=== PATIENT | male | born 1960 | race Caucasian/White ===

== ENCOUNTER → 2017-07-21 | Outpatient (CLI) | payer OTHER ==
--- NOTE | 2017-07-21 16:56 | MR ---
EXAMINATION TYPE: MR hip RT wo con DATE OF EXAM: 07/21/2017 3:43 PM COMPARISON: NONE HISTORY: Right hip pain with limited ROM TECHNIQUE: Multiplanar, multiecho imaging of the right is performed without IV contrast. FINDINGS: There has been a right hip arthroplasty. 2 metastatic distortion through the region of the right hip makes this examination nondiagnostic for the right hip. There is mild joint space loss involving the left hip. There is mild hypertrophic change within the sigmoid region. There is no evidence of diverticulitis. IMPRESSION: 1. THE STUDY IS NONDIAGNOSTIC FOR RIGHT HIP. 2. MILD DEGENERATIVE CHANGES IN THE LEFT HIP. 3. UNCOMPLICATED DIVERTICULOSIS OF THE SIGMOID COLON.
--- NOTE | 2017-07-21 17:03 | MR ---
MR lumbar spine wo con Low back pain Multiplanar, multiecho imaging of the lumbar spine was obtained without contrast on a 3 Radha magnet. REFERENCE: Previous study dated 08/27/2014. FINDINGS: Prevertebral soft tissues are normal. Vertebral body height and alignment are maintained. Cord signal is maintained. The conus ends normally at the level of the mid body of L1. At T12-L1, no definite abnormality is seen. At L1-2, there are mild hypertrophic changes within the facets. At L2-3, there is mild hypertrophic change and capsulitis within the facets. At L3-4, there is mild hypertrophic change within the facets. At L4-5, there is disc space loss and disc desiccation. There is a diffuse disc displacement extendin g into both intervertebral foramina causing mild, bilateral intervertebral foramina stenosis. There i s hypertrophic change and capsulitis within the facets. At L5-S1, there is disc space loss and disc desiccation. There is fatty endplate change. The interver tebral foramina are reasonably well-maintained. There is mild hypertrophic change in the facets. Incidental note is made of a Tarlov cyst on the left at the level of S3. IMPRESSION: 1. DIFFUSE FACET ARTHROPATHY. 2. DEGENERATIVE DISC DISEASE MOST MARKED AT L4-5 AND L5-S1. 3. BILATERAL INTERVERTEBRAL FORAMINAL NARROWING, L4 5. 4. 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
== END ==
LOC: RADMRIMAIN 14:45
PROVIDERS: ATTEND Family Medicine
DX: M99.73 Connective tissue and disc stenosis of intervertebral foramina of lumbar region (principal); M51.37 Other intervertebral disc degeneration, lumbosacral region; M46.86 Other specified inflammatory spondylopathies, lumbar region; M16.12 Unilateral primary osteoarthritis, left hip
CPT/HCPCS: 72148

== ENCOUNTER → 2018-09-16 | Outpatient (CLI) | payer OTHER ==
--- NOTE | 2018-09-18 09:53 | MR ---
EXAMINATION TYPE: MR lumbar spine wo con DATE OF EXAM: 09/16/2018 COMPARISON: MRI lumbar spine July 21, 2017 HISTORY: Lumbar ago per order. Bad back pain into both thighs per patient for one year. TECHNIQUE: Multiplanar, multisequence imaging of the lumbar spine is performed without IV contrast. FINDINGS: Sagittal images of the lumbar spine show vertebral body heights and alignment to remain sat isfactory. There is redemonstration of disc desiccation L4-L5 level with mild disc space narrowing. T here is redemonstration of disc desiccation with moderate to severe disc space narrowing and heteroge neous Modic type II endplate changes L5-S1 level. No new or large posterior disc herniations are seen on sagittal images. The conus medullaris remains normal in position and signal ending at L1 level. P reviously visualized Tarlov cyst is outside [id number] on current study. No significant spurring i s seen. Axial images show the T12-L1 and L1-L2 levels to remain within normal limits. Axial images at L2-L3 and the L3-L4 levels redemonstrate mild facet degenerative changes bilaterally. Spinal canal is preserved. Bilateral neural foramina are patent. No significant change from prior. Axial images at the L4-L5 level redemonstrate mild to moderate facet degenerative changes bilaterally . There is mild broad disc bulge seen. Bilateral neural foramina are minimally narrowed. Spinal canal is preserved. No significant change from prior. Axial images at L5-S1 level redemonstrate mild to moderate facet degenerative changes bilaterally. Th ere is central disc protrusion. Spinal canal is preserved. Bilateral neural foramina are patent. No suspicious incidental retroperitoneal findings are seen. IMPRESSION: Some multilevel degenerative changes in the lumbar spine most prominent in lower lumbar l evels as detailed above. No significant progression from prior MRI.
== END ==
LOC: RADMRIMAIN 20:15
PROVIDERS: ATTEND Psychiatry & Neurology Neurology
DX: M99.73 Connective tissue and disc stenosis of intervertebral foramina of lumbar region (principal); M51.27 Other intervertebral disc displacement, lumbosacral region; M47.817 Spondylosis without myelopathy or radiculopathy, lumbosacral region
CPT/HCPCS: 72148

== ENCOUNTER → 2018-09-16 | Outpatient (CLI) | payer OTHER ==
--- NOTE | 2018-09-18 09:56 | MR ---
EXAMINATION TYPE: MR hip LT wo con DATE OF EXAM: 09/16/2018 COMPARISON: None. HISTORY: Lt hip pain/osteoarthritis per order. Standard multiplanar, multisequence MRI departmental protocol Multiplanar, multisequence images of the pelvis focusing on the left hip were acquired. FINDINGS: Bone marrow signal intensity in left hip is maintained. No suspicious edema is seen. No olivia picious serpiginous T1 signal is present to suggest avascular necrosis. There is fairly moderate left hip joint effusion with moderate axial joint space loss. Mild acetabular spurring is seen. Mild spur ring inferior head neck junction proximal femur is noted. There is no suspicious edema at level of greater or lesser trochanters in the left hip. No suspicious groin adenopathy is seen. No concerning groin hernia is noted. Subchondral cystic change in the anterior superior acetabulum is identified. Some degenerative frayin g of the adjacent labrum is present. Muscle bulk left thigh is felt within normal limits. Visualized portion of prostate shows diffuse areas of T2 hypointense signal in the peripheral zone. N o suspicious bowel dilatation is seen. Bladder is felt within normal limits. Artifact from right hip prosthesis is noted. IMPRESSION: Moderate degenerative changes left hip as detailed above.
== END | disposition home or self-care (01) ==
LOC: RADMRIMAIN 20:21
PROVIDERS: ATTEND Internal Medicine
DX: M16.12 Unilateral primary osteoarthritis, left hip (principal)

== ENCOUNTER 2019-05-24 06:55 | Inpatient (IN) | payer OTHER ==
[2019-05-24] MEDS ORDERED: ONDANSETRON 4 MG/2 ML VIAL IVP STA (07:18)
[2019-05-24] MEDS ORDERED: SODIUM CHLORIDE 0.9% 1,000 ML IV STA ×2 (07:18)
[2019-05-24] MEDS ORDERED: HYDROmorphone 1 MG/ML 1 ML SYRINGE IVP STA ×3 (07:18→08:13)
[2019-05-24] MEDS ORDERED: PANTOPRAZOLE 40 MG/10 ML VIAL IVP STA (07:18)
--- NOTE | 2019-05-24 07:26 | ED ---
Abdominal Pain HPI - General Chief Complaint: Abdominal Pain Stated Complaint: abd pain Time Seen by Provider: 05/24/19 07:06 Source: patient, EMS, RN notes reviewed, old records reviewed Mode of arrival: EMS Limitations: no limitations - History of Present Illness Initial Comments: Patient is a 39-year-old male with history of GERD, hyperlipidemia and hypertension also arthritis. He presents restaurant today with nausea, vomiting episodes, severe cramping abdominal pain onset 8 hours ago. He denies any diarrhea. Last bowel movement was yesterday. Patient denies any surgical abdominal history. He did have a recent left hip replacement, is currently on pain medication. Patient states that he has not had any of his pain medications because he is vomiting them up. Patient reports that he hasn't had a colonoscopy. Patient denies any back pain. She reports she is an occasional drinker. Denies any recent alcohol use in the past 24-48 hours. Patient denies any recent fever, chills, shortness of breath, chest pain, back pain, numbness or tingling, dysuria or hematuria, constipation or diarrhea, headaches or visual changes, or any other current symptoms. - Related Data Home Medications Medication Instructions Recorded Confirmed Hydrocodone/Acetaminophen 1 tab PO TID PRN 09/24/14 10/01/14 [Hydrocodon-Acetaminophen 5-325] Naproxen 500 mg PO DAILY 09/24/14 10/01/14 Omeprazole [PriLOSEC] 20 mg PO Q2D PRN 09/24/14 10/01/14 Atorvastatin [Lipitor] 40 mg PO HS 09/28/14 10/01/14 Warfarin [Coumadin] 7.5 mg PO ONCE 09/28/14 10/01/14 amLODIPine [Norvasc] 5 mg PO QAM 09/28/14 10/01/14 Previous Rx's Medication Instructions Recorded HYDROcodone/APAP 7.5-325MG [[place] 1 - 2 each PO Q6H PRN #90 tab 10/02/14 7.5-325] Warfarin [Coumadin] 2.5 mg PO DAILY #1 tab 10/02/14 Allergies Allergy/AdvReac Type Severity Reaction Status Date / Time No Known Allergies Allergy Verified 05/24/19 07:48 Review of Systems ROS Statement: Those systems with pertinent positive or pertinent negative responses have been documented in the HPI. ROS Other: All systems not noted in ROS Statement are negative. Past Medical History Past Medical History: GERD/Reflux, Hyperlipidemia, Hypertension, Osteoarthritis (OA) History of Any Multi-Drug Resistant Organisms: None Reported Additional Past Surgical History / Comment(s): REPAIR TORN MENICUS RT KNEE, HERNIA REPAIR LT GROIN Past Anesthesia/Blood Transfusion Reactions: No Reported Reaction Past Psychological History: No Psychological Hx Reported Smoking Status: Current every day smoker Past Alcohol Use History: Daily Past Drug Use History: None Reported - Past Family History Father Family Medical History: Cancer, Hypertension Mother Family Medical History: Hypertension, Osteoarthritis (OA) General Exam - General Exam Comments Initial Comments: 59-year-old male. Alert and oriented. Severe distress. Limitations: no limitations General appearance: alert, in no apparent distress Head exam: Present: atraumatic Eye exam: Present: normal appearance, PERRL, EOMI. Absent: scleral icterus, conjunctival injection, periorbital swelling ENT exam: Present: normal exam, mucous membranes moist Neck exam: Present: normal inspection. Absent: tenderness, meningismus, lymphadenopathy Respiratory exam: Present: normal lung sounds bilaterally. Absent: respiratory distress, wheezes, rales, rhonchi, stridor Cardiovascular Exam: Present: regular rate, normal rhythm, normal heart sounds. Absent: systolic murmur, diastolic murmur, rubs, gallop, clicks GI/Abdominal exam: Present: soft, tenderness (Guarding.), guarding, normal bowel sounds. Absent: distended, rebound, rigid Extremities exam: Present: normal inspection, full ROM, normal capillary refill. Absent: tenderness, pedal edema, joint swelling, calf tenderness Back exam: Present: normal inspection Neurological exam: Present: alert, oriented X3, CN II-XII intact Psychiatric exam: Present: normal affect, normal mood Skin exam: Present: warm, dry, intact, normal color. Absent: rash Course Vital Signs 05/24/19 07:02 Temperature 97.5 F L Pulse Rate 97 Respiratory 18 Rate Blood Pressure 147/94 O2 Sat by Pulse 99 Oximetry Medical Decision Making - Medical Decision Making 59-year-old male presents emergency department today riding abdominal pain. He reports symptoms started the past 8 hours, multiple episodes of vomiting. He had a bowel movement yesterday. Patient was started on IV fluids labwork obtained. Lab work shows evidence of acute pancreatitis, amylase 470 and lipase of 3721. Patient is dehydrated, lactic acid of 3.4. Leukocytosis was also noted with a white blood cell count of 17,000, neutrophils 15.3. CT abdomen and pelvis was completed and shows evidence of acute pancreatitis as well as gastritis and ileus. Patient's was given 2 L bolus, multiple rounds of pain medication. Asians case discussed with Dr. Zaldivar. She'll be admitted at this time for acute pancreatitis, ileus. On further questioning Patient states he does occasionally drink alcohol is likely related to his pancreatitis, denies any heavy use of alcohol this time. - Lab Data Result diagrams: 05/24/19 07:20 05/24/19 07:20 Lab Results 05/24/19 05/24/19 05/24/19 Range/Units 07:20 07:20 07:20 WBC 17.1 H (3.8-10.6) k/uL RBC 5.51 (4.30-5.90) m/uL Hgb 15.6 (13.0-17.5) gm/dL Hct 48.1 (39.0-53.0) % MCV 87.1 (80.0-100.0) fL MCH 28.2 (25.0-35.0) pg MCHC 32.4 (31.0-37.0) g/dL RDW 15.6 H (11.5-15.5) % Plt Count 350 (150-450) k/uL Neutrophils % 89 % Lymphocytes % 5 % Monocytes % 3 % Eosinophils % 1 % Basophils % 0 % Neutrophils # 15.3 H (1.3-7.7) k/uL Lymphocytes # 0.9 L (1.0-4.8) k/uL Monocytes # 0.6 (0-1.0) k/uL Eosinophils # 0.1 (0-0.7) k/uL Basophils # 0.0 (0-0.2) k/uL PT (9.0-12.0) sec INR (<1.2) APTT (22.0-30.0) sec Sodium 143 (137-145) mmol/L Potassium 4.4 (3.5-5.1) mmol/L Chloride 104 (98-107) mmol/L Carbon Dioxide 24 (22-30) mmol/L Anion Gap 15 mmol/L BUN 20 (9-20) mg/dL Creatinine 0.67 (0.66-1.25) mg/dL Est GFR (CKD-EPI)AfAm >90 (>60 ml/min/1.73 sqM) Est GFR (CKD-EPI)NonAf >90 (>60 ml/min/1.73 sqM) Glucose 157 H (74-99) mg/dL Plasma Lactic Acid Sridhar 3.4 H* (0.7-2.0) mmol/L Calcium 10.2 (8.4-10.2) mg/dL Total Bilirubin 0.9 (0.2-1.3) mg/dL AST 29 (17-59) U/L ALT 34 (21-72) U/L Alkaline Phosphatase 173 H (38-126) U/L Total Protein 8.3 H (6.3-8.2) g/dL Albumin 5.1 H (3.5-5.0) g/dL Amylase 471 H* (30-110) U/L Lipase 3721 H (23-300) U/L 05/24/19 Range/Units 07:20 WBC (3.8-10.6) k/uL RBC (4.30-5.90) m/uL Hgb (13.0-17.5) gm/dL Hct (39.0-53.0) % MCV (80.0-100.0) fL MCH (25.0-35.0) pg MCHC (31.0-37.0) g/dL RDW (11.5-15.5) % Plt Count (150-450) k/uL Neutrophils % % Lymphocytes % % Monocytes % % Eosinophils % % Basophils % % Neutrophils # (1.3-7.7) k/uL Lymphocytes # (1.0-4.8) k/uL Monocytes # (0-1.0) k/uL Eosinophils # (0-0.7) k/uL Basophils # (0-0.2) k/uL PT 9.7 (9.0-12.0) sec INR 0.9 (<1.2) APTT 24.5 (22.0-30.0) sec Sodium (137-145) mmol/L Potassium (3.5-5.1) mmol/L Chloride (98-107) mmol/L Carbon Dioxide (22-30) mmol/L Anion Gap mmol/L BUN (9-20) mg/dL Creatinine (0.66-1.25) mg/dL Est GFR (CKD-EPI)AfAm (>60 ml/min/1.73 sqM) Est GFR (CKD-EPI)NonAf (>60 ml/min/1.73 sqM) Glucose (74-99) mg/dL Plasma Lactic Acid Sridhar (0.7-2.0) mmol/L Calcium (8.4-10.2) mg/dL Total Bilirubin (0.2-1.3) mg/dL AST (17-59) U/L ALT (21-72) U/L Alkaline Phosphatase (38-126) U/L Total Protein (6.3-8.2) g/dL Albumin (3.5-5.0) g/dL Amylase (30-110) U/L Lipase (23-300) U/L - Radiology Data Radiology results: report reviewed EKG performed at 8:00 shows normal sinus rhythm with possible left atrial enlargement prolonged QT. Ventricular rate of 89 bpm. Verbal 164 ms. QRS ration 86 most seconds. QT QTC 396/[address] abdomen and pelvis shows findings to reflect acute pancreatitis. Correlate clinically with a moistened lipase. No evidence for pseudocyst or abscess. Gastrointestinal ileus is noted. Hepatomegaly. Disposition Clinical Impression: Acute pancreatitis, Ileus, Leukocytosis, Dehydration, Lactic acidosis Disposition: ADMITTED IP TO THIS HOSP Condition: Stable Is patient prescribed a controlled substance at d/c from ED?: No Referrals: Preston Self MD [Primary Care Provider] - 1-2 days Time of Disposition: 08:19
[2019-05-24 07:35] LABS: Basophils % (A) 0 %; Eosinophils # (A) 0.1 k/uL (0-0.7); Eosinophils % (A) 1 %; HCT 48.1 % (39.0-53.0); HGB 15.6 gm/dL (13.0-17.5); Lymphocytes # (A) 0.9 k/uL (1.0-4.8); Lymphocytes % (A) 5 %; MCH 28.2 pg (25.0-35.0); MCHC 32.4 g/dL (31.0-37.0); MCV 87.1 fL (80.0-100.0); Mean Platelet Volume 7.4; Monocytes # (A) 0.6 k/uL (0-1.0); Monocytes % (A) 3 %; Neutrophils # (A) 15.3 k/uL (1.3-7.7); Neutrophils % (A) 89 %; Platelet Count 350 k/uL (150-450); RBC 5.51 m/uL (4.30-5.90); RDW 15.6 % (11.5-15.5); WBC 17.1 k/uL (3.8-10.6)
[2019-05-24 07:43] LABS: INR 0.9 (<1.2); Partial Thromboplastin Time 24.5 sec (22.0-30.0); Prothrombin Time 9.7 sec (9.0-12.0)
[2019-05-24 07:44] LABS: ALT 34 U/L (21-72); AST 29 U/L (17-59); African American GFR (CKD) >90 (>60 ml/min/1.73 sqM); Albumin 5.1 g/dL (3.5-5.0); Alkaline Phosphatase 173 U/L (38-126); Anion Gap 15 mmol/L; Blood Urea Nitrogen 20 mg/dL (9-20); Calcium 10.2 mg/dL (8.4-10.2); Carbon Dioxide 24 mmol/L (22-30); Chloride 104 mmol/L (98-107); Glucose 157 mg/dL (74-99); Potassium 4.4 mmol/L (3.5-5.1); Sodium 143 mmol/L (137-145); Total Bilirubin 0.9 mg/dL (0.2-1.3); Total Protein 8.3 g/dL (6.3-8.2)
[2019-05-24 07:56] LABS: Amylase 471 U/L (30-110); Lipase 3721 U/L (23-300)
[2019-05-24] MEDS ORDERED: LORazepam 2 MG/ML INJ IV STA (08:04)
[2019-05-24] MEDS ORDERED: SODIUM CHLORIDE 0.9% 1,000 ML IV ONE (08:04)
--- NOTE | 2019-05-24 08:04 | CT ---
EXAMINATION TYPE: CT abdomen pelvis w con DATE OF EXAM: 05/24/2019 COMPARISON: None HISTORY: Abdominal pain CT DLP: 1059 mGycm CONTRAST: CT scan of the abdomen and pelvis is performed without Oral Contrast and with IV Contrast, patient in jected with 100 mL of Isovue 300. FINDINGS: LUNG BASES-: No visible nodule. No infiltrate. LIVER/GB: No calcified gallstones. No space occupying hepatic lesion. Biliary tree is of normal ca liber. There is evidence of hepatomegaly. PANCREAS: There is edema of the pancreas with peripancreatic stranding compatible with acute pancreat itis. SPLEEN: No splenic enlargement. No lesion seen. ADRENALS: No nodule. No thickening. KIDNEYS/BLADDER: No hydronephrosis. No nephrolithiasis. No distinct renal mass. Urinary bladder g rossly unremarkable. BOWEL: There is ileus noted of the adjacent stomach and small bowel. Fluid-filled contents noted of t he colon as well. Normal appendix. Normal bowel caliber. No inflammation. GENITAL ORGANS: No gross abnormality. LYMPH NODES: No greater than 1cm abdominal or pelvic lymph nodes are appreciated. AORTA: No significant abnormality. OSSEOUS STRUCTURES: Right hip prosthesis in place. Severe narrowing L5-S1. OTHER: No significant additional abnormality is seen. IMPRESSION: 1. Findings felt to reflect acute pancreatitis. Correlate clinically with amylase and lipase. No evid ence for pseudocyst or abscess. 2. Gastrointestinal ileus noted. 3. Hepatomegaly.
[2019-05-24] MEDS ORDERED: diphenhydrAMINE 50 MG/ML 1 ML VIAL IVP STA (08:13)
[2019-05-24] MEDS ORDERED: METOCLOPRAMIDE 5 MG/ML 2 ML VIAL IVP STA (08:13)
[2019-05-24] MEDS ORDERED: NALOXONE 0.4 MG/ML 1 ML VIAL IV PRN (08:21)
[2019-05-24] MEDS ORDERED: KETOROLAC 30 MG/ML 1 ML VIAL IVP PRN (08:21)
[2019-05-24] MEDS: SODIUM CHLORIDE 0.9% 1,000 ML IV SCH ×2 (09:10→17:17)
[2019-05-24] MEDS: PANTOPRAZOLE 40 MG/10 ML VIAL IV SCH (09:11)
[2019-05-24] MEDS: amLODIPine 5 MG TAB PO SCH (09:12)
[2019-05-24] MEDS: HYDROmorphone 1 MG/ML 1 ML SYRINGE IVP PRN ×2 (10:11→13:10)
[2019-05-24] MEDS: ONDANSETRON 4 MG/2 ML VIAL IVP PRN ×2 (10:11→17:17)
[2019-05-24] MEDS ORDERED: HYDROmorphone 2 MG/ML 1 ML SYRINGE IVP STA (14:03)
--- NOTE | 2019-05-24 14:10 | P.HPIM ---
History of Present Illness H&P Date: 05/24/19 Chief Complaint: Abdominal pain 59-year-old with PMH of hypertension, hyperlipidemia, severe bilateral hip osteoarthritis since the ED for abdominal pain. Patient reports waking up with the pain which started yesterday morning. Pain is periumbilical, constant, 10 out of 10 in severity. Patient describes the pain as squeezing in nature. Pain occasionally radiates to the right back. There are no alleviating or aggravating factors. Patient reports no previous episodes. Patient reports drinking a sixpack daily but denies any withdrawal symptoms. Patient reports associated nausea and vomiting with the abdominal pain. He smokes one pack of cigarettes daily since he was 17 years old. He denies any history of gallstones. Patient denies any headache, lower extremity edema, fever or chills, cough, chest pain, shortness of breath, palpitations, changes in urination or bowel habits. No changes in appetite or weight. In the ED, CBC showed a leukocytosis of 17.1. Coagulation panel was negative. CMP was negative. Lactic acid was 3.4. Amylase was 471 and lipase was 3721. CT of the abdomen and pelvis confirmed suspicions acute pancreatitis. Patient is admitted for pancreatitis, IV hydration and pain control, pending clinical improvement. Review of Systems Pertinent positives and negatives as discussed in HPI, a complete review of systems was performed and all other systems are negative. Past Medical History Past Medical History: GERD/Reflux, Hyperlipidemia, Hypertension, Osteoarthritis (OA) History of Any Multi-Drug Resistant Organisms: None Reported Past Surgical History: Orthopedic Surgery Additional Past Surgical History / Comment(s): REPAIR TORN MENICUS RT KNEE, HERNIA REPAIR LT GROIN, dec 10 rt hip re-do Past Anesthesia/Blood Transfusion Reactions: No Reported Reaction Past Psychological History: No Psychological Hx Reported Smoking Status: Current every day smoker Past Alcohol Use History: Daily Additional Past Alcohol Use History / Comment(s): STARTED SMOKING AGE 18 Past Drug Use History: None Reported - Past Family History Father Family Medical History: Cancer, Hypertension Mother Family Medical History: Hypertension, Osteoarthritis (OA) Medications and Allergies Home Medications Medication Instructions Recorded Confirmed Type Cyclobenzaprine [Flexeril] 5 mg PO TID PRN 05/24/19 05/24/19 History Gabapentin [Neurontin] 300 mg PO DAILY 05/24/19 05/24/19 History HYDROcodone/APAP 10-325MG [[place] 1 tab PO QID PRN 05/24/19 05/24/19 History 10-325] Ibuprofen [Motrin] 800 mg PO BID 05/24/19 05/24/19 History amLODIPine [Norvasc] 10 mg PO DAILY 05/24/19 05/24/19 History Allergies Allergy/AdvReac Type Severity Reaction Status Date / Time No Known Allergies Allergy Verified 05/24/19 07:48 Physical Exam Vitals: Vital Signs Temp Pulse Pulse Resp BP BP Pulse Ox 05/24/19 09:43 97.8 F 98 20 150/83 94 L 05/24/19 09:00 83 18 137/83 94 L 05/24/19 08:30 85 17 132/88 93 L 05/24/19 08:00 19 136/100 96 05/24/19 07:02 97.5 F L 97 18 147/94 99 Intake and Output 05/23/19 05/24/19 05/24/19 22:59 06:59 14:59 Intake Total 800 Balance 800 Intake: IV 800 Sodium Chloride 0.9% 1, 800 000 ml @ 100 mls/hr IV . Q10H [facility] Rx#:[id number] Other: Weight 90.718 kg General: [non toxic], [severe distress], [appears at stated age] Derm: [warm], [dry] Head: [atraumatic], [normocephalic], [symmetric] Eyes: [EOMI], [no lid lag], [anicteric sclera] Mouth: [no lip lesion], [mucus membranes moist] Cardiovascular: [S1S2 reg], [tachycardia], [positive posterior tibial pulse bilateral], Lungs: [CTA bilateral], [no rhonchi, no rales] , [no accessory muscle use] Abdominal: [soft], [tenderness to palpation of the epigastric area without rebound], [no guarding], [no appreciable organomegaly] Ext: [no gross muscle atrophy], [no edema], [no contractures] Neuro: [ CN II-XI grossly intact], [no focal neuro deficits] Psych: [Alert], [oriented], [appropriate affect] Results CBC & Chem 7: 05/24/19 07:20 05/24/19 07:20 Labs: Abnormal Lab Results - Last 24 Hours (Table) 05/24/19 05/24/19 05/24/19 Range/Units 07:20 07:20 07:20 WBC 17.1 H (3.8-10.6) k/uL RDW 15.6 H (11.5-15.5) % Neutrophils # 15.3 H (1.3-7.7) k/uL Lymphocytes # 0.9 L (1.0-4.8) k/uL Glucose 157 H (74-99) mg/dL Plasma Lactic Acid Sridhar 3.4 H* (0.7-2.0) mmol/L Alkaline Phosphatase 173 H (38-126) U/L Total Protein 8.3 H (6.3-8.2) g/dL Albumin 5.1 H (3.5-5.0) g/dL Amylase 471 H* (30-110) U/L Lipase 3721 H (23-300) U/L 05/24/19 Range/Units 11:08 WBC (3.8-10.6) k/uL RDW (11.5-15.5) % Neutrophils # (1.3-7.7) k/uL Lymphocytes # (1.0-4.8) k/uL Glucose (74-99) mg/dL Plasma Lactic Acid Sridhar 2.1 H* (0.7-2.0) mmol/L Alkaline Phosphatase (38-126) U/L Total Protein (6.3-8.2) g/dL Albumin (3.5-5.0) g/dL Amylase (30-110) U/L Lipase (23-300) U/L Thrombosis Risk Factor Assmnt - Choose All That Apply Each Factor Represents 1 point: Age 41-60 years Thrombosis Risk Factor Assessment Total Risk Factor Score: 1 Thrombosis Risk Factor Assessment Level: Low Risk Assessment and Plan Assessment: Assessment and Plan Acute pancreatitis Leukocytosis Lactic acidosis Hypertension Hyperlipidemia Unknown cause. Amylase 471, lipase 3721. Total bilirubin and LFTs within normal limits. CT abdomen and pelvis confirmed suspicion for pancreatitis. Plans: Dilaudid 2 mg IV every 3 hours as needed for severe pain. Continue IV hydration with normal saline at 100 mL per hour. Patient to be nothing by mouth pending improvement. Zofran as needed for nausea or vomiting. Continue Protonix 40 mg IV daily. Leukocytosis of 17.1 with neutrophilia, afebrile. No signs of infection. Likely reactive. Plans: Daily CBC. Follow blood cultures. Lactic acid 3.4-2.1. Likely secondary to dehydration. Plans: Continue IV hydration as above. Repeat lactic acid. BP 150/83. Plans: Continue amlodipine. Monitor vitals, adjust medications as necessary. Plans: Continue Lipitor. Patient admitted for pancreatitis, he is pending clinical improvement, likely DC in 2-3 days.
[2019-05-24] MEDS: HYDROmorphone 2 MG/ML 1 ML SYRINGE IVP PRN ×3 (17:17→22:31)
[2019-05-24 18:08] LABS: Appearance,Urine Clear (Clear); Bilirubin,Urine Negative (Negative); Blood,Urine Negative (Negative); Color,Urine Yellow; Glucose,Urine (UA) Negative (Negative); Ketones,Urine Negative (Negative); Leukocyte Esterase,Urine Negative (Negative); Mucus,Urine Occasional /hpf; Nitrite,Urine Negative (Negative); PH, Urine 6.5 (5.0-8.0); Protein,Urine 1+ (Negative); RBC,Urine <1 /hpf (0-5); Specific Gravity,Urine 1.042 (1.001-1.035); Urobilinogen,Urine <2.0 mg/dL (<2.0); WBC,Urine 1 /hpf (0-5)
[2019-05-24] MEDS: ATORVASTATIN 40 MG TAB PO SCH (19:49)
[2019-05-25] MEDS: ONDANSETRON 4 MG/2 ML VIAL IVP PRN ×2 (01:09→07:31)
[2019-05-25] MEDS: HYDROmorphone 2 MG/ML 1 ML SYRINGE IVP PRN ×8 (01:09→22:32)
[2019-05-25] MEDS ORDERED: IOPAMIDOL-300 CONTRAST 30 ML VIAL (ORAL USE) PO PRN ×2 (02:25→06:45)
[2019-05-25] MEDS: SODIUM CHLORIDE 0.9% 1,000 ML IV SCH ×3 (03:43→20:01)
[2019-05-25] MEDS: PANTOPRAZOLE 40 MG/10 ML VIAL IV SCH (07:31)
[2019-05-25 07:49] LABS: African American GFR (CKD) >90 (>60 ml/min/1.73 sqM); Albumin 3.9 g/dL (3.5-5.0); Amylase 250 U/L (30-110); Anion Gap 8 mmol/L; Blood Urea Nitrogen 20 mg/dL (9-20); Calcium 8.4 mg/dL (8.4-10.2); Carbon Dioxide 25 mmol/L (22-30); Chloride 106 mmol/L (98-107); Glucose 99 mg/dL (74-99); Lipase 599 U/L (23-300); Sodium 139 mmol/L (137-145); Total Protein 6.5 g/dL (6.3-8.2)
[2019-05-25 07:52] LABS: ALT 24 U/L (21-72); AST 28 U/L (17-59); Alkaline Phosphatase 107 U/L (38-126); Potassium 4.7 mmol/L (3.5-5.1)
[2019-05-25] MEDS: amLODIPine 5 MG TAB PO SCH (08:35)
[2019-05-25] MEDS: amLODIPine 10 MG TAB PO SCH (08:35)
[2019-05-25] MEDS: GABAPENTIN 300 MG CAP PO SCH (08:35)
--- NOTE | 2019-05-25 08:44 | CT ---
EXAMINATION TYPE: CT abdomen pelvis w con DATE OF EXAM: 05/25/2019 COMPARISON: 05/24/2019 HISTORY: Severe abdominal pain CT DLP: 1327 mGycm Automated exposure control for dose reduction was used. CONTRAST: CT scan of the abdomen pelvis is performed with IV Contrast, patient injected with 100 mL of Isovue 3 00. FINDINGS- LUNG BASES-bilateral lower lobe subsegmental infiltrate. LIVER/GB- No calcified gallstones. No space occupying hepatic lesion. Biliary tree is of normal beatriz iber. There is evidence of hepatomegaly. PANCREAS-there is extensive inflammatory change involving the peripancreatic region similar in appear ance to the prior exam. Small amount of ascites is incidentally. SPLEEN- No gross abnormality is seen. ADRENALS- No gross abnormality is seen. KIDNEYS/BLADDER- no hydronephrosis nephrolithiasis or renal mass. BOWEL-there are prominent small bowel loops in the abdomen which may be related to ileus secondary to severe inflammatory changes seen in the peripancreatic region.. Diverticulosis of the colon. LYMPH NODES- No greater than 1cm abdominal or pelvic lymph nodes areappreciated. OSSEOUS STRUCTURES-hypertrophic and degenerative changes of the vertebral column.. Right hip prosthes is in place. Arthropathy of the left hip. OTHER- aorta of normal caliber. Mild atherosclerotic changes. IMPRESSION- 1. Persistent extensive peripancreatic inflammatory changes. Correlate for pancreatitis otherwise con business analytics analyst peptic ulcer disease. Small amount of ascites. 2. Bilateral lower lobe atelectasis or infiltrate. 3. Persistent bowel dilation most likely the basis of an ileus secondary to inflammatory changes. Ent eritis not excluded. Partial obstruction not entirely excluded.
--- NOTE | 2019-05-25 08:54 | P.PN ---
Subjective Progress Note Date: 05/25/19 Principal diagnosis: pancreatitis Patient was seen and examined. No acute events overnight. Patient reports a slight improvement in his abdominal pain, but continues to complain of cramping that is 10 out of 10 in severity in between Dilaudid injections. Reports that he drinks a sixpack daily. Patient denies any chest and, shortness breath or palpitations. No nausea or vomiting. No fever or chills. States he had one episode of diarrhea without any blood in stool. Objective - Vital Signs Vital signs: Vital Signs Temp 98.6 F 05/25/19 04:58 Pulse 90 05/25/19 04:58 Resp 16 05/25/19 04:58 BP 122/66 05/25/19 04:58 Pulse Ox 95 05/25/19 05:05 Intake & Output 05/24/19 05/25/19 05/25/19 18:59 06:59 18:59 Intake Total 800 Output Total 175 Balance 800 -175 Weight 90.718 kg Intake: IV 800 Sodium Chloride 0.9% 1, 800 000 ml @ 100 mls/hr IV . Q10H [facility] Rx#:[id number] Output: Urine 175 Other: # Voids 1 - Exam General: [non toxic], [severe distress], [appears at stated age] Derm: [warm], [dry] Head: [atraumatic], [normocephalic], [symmetric] Eyes: [EOMI], [no lid lag], [anicteric sclera] Mouth: [no lip lesion], [mucus membranes moist] Cardiovascular: [S1S2 reg], [no murmurs], [positive DP pulse bilateral], Lungs: [CTA bilateral], [no rhonchi, no rales] , [no accessory muscle use] Abdominal: [soft], [tenderness to palpation of the epigastric area without rebound], [no guarding], [no appreciable organomegaly] Ext: [no gross muscle atrophy], [no edema], [no contractures] Neuro: [no focal neuro deficits] Psych: [Alert], [oriented], [appropriate affect] - Labs CBC & Chem 7: 05/24/19 07:20 05/25/19 07:16 Labs: Abnormal Lab Results - Last 24 Hours (Table) 05/24/19 05/24/19 05/25/19 Range/Units 11:08 18:00 07:16 Creatinine 0.51 L (0.66-1.25) mg/dL Plasma Lactic Acid [place] 2.1 H* (0.7-2.0) mmol/L Amylase 250 H (30-110) U/L Lipase 599 H (23-300) U/L Ur Specific [place] 1.042 H (1.001-1.035) Urine Protein 1+ H (Negative) Urine Mucus Occasional H (None) /hpf Assessment and Plan Assessment: Assessment and Plan Acute pancreatitis with ileus Leukocytosis Hypertension Hyperlipidemia Unknown cause. Amylase 471-250, lipase 3721-599. Total bilirubin and LFTs within normal limits. CT abdomen and pelvis confirmed suspicion for pancreatitis. Plans: Dilaudid 2 mg IV every 3 hours as needed for severe pain. Continue IV hydration with normal saline at 100 mL per hour. Patient to be nothing by mouth pending improvement. Zofran as needed for nausea or vomiting. Continue Protonix 40 mg IV daily. Repeat computed tomography scan ordered due to uncontrolled pain. Add Bentyl per abdominal cramping. Follow surgery consultation for ileus. Leukocytosis of 17.1 with neutrophilia, afebrile. No signs of infection. Likely reactive. Plans: Daily CBC. Follow blood cultures. BP 122/66. Plans: Continue amlodipine. Monitor vitals, adjust medications as necessary. Plans: Continue Lipitor. Resolved: Lactic acidosis. Patient admitted for pancreatitis, he is pending clinical improvement, likely DC in 2-3 days.
[2019-05-25] MEDS: DICYCLOMINE 10 MG CAP PO SCH ×3 (09:52→19:48)
--- NOTE | 2019-05-25 13:05 | P.GSCN ---
<Laura Gilliam - Last Filed: 05/25/19 12:58> History of Present Illness Consult date: 05/25/19 Reason for Consult: abdominal pain Requesting physician: Chrissie Sandra History of present illness: CHIEF COMPLAINT: abdominal pain HISTORY OF PRESENT ILLNESS: Patient admitted to the hospital secondary to abdominal pain and pancreatitis. General surgery was consulted for further evaluation. Patient examined at the bedside. Patient reports daily alcohol use with at least 6 beers. He states "Of course I drink everyday. I am retired". He reports severe abdominal pain that is crampy in nature. He reports nausea. Denies emesis. Denies diarrhea or constipation. Patient denies previous history of pancreatitis. PAST MEDICAL HISTORY: See list. PAST SURGICAL HISTORY: See list. MEDICATIONS: See list. ALLERGIES: See list. SOCIAL HISTORY: No illicit drug use. Reports daily alcohol use. REVIEW OF SYSTEMS: CONSTITUTIONAL: Denies fever or chills. HEENT: Denies blurred vision, vision changes, or eye pain. Denies hemoptysis ENDOCRINE: Denies heat or cold intolerance. CARDIOVASCULAR: Denies chest pain or pressure. RESPIRATORY: No shortness of breath. GASTROINTESTINAL: see HPI for pertinent findings NEURO: Denies history of seizures. PSYCH: No depression or suicidal ideation HEMATOLOGIC: Denies bleeding disorders. LYMPHATIC: The patient denies any lumps and bumps around the neck. GENITOURINARY: Denies any blood in urine or increased urinary frequency. MUSCULOSKELETAL: Denies myalgias. Denies joint swelling. Denies decreased range of motion beyond patients baseline. SKIN: Denies pruitis. Denies rash. PHYSICAL EXAM: VITAL SIGNS: Currently stable. GENERAL: Well-developed in no acute distress however appears uncomfortable. HEENT: No sclera icterus. Extraocular movements grossly intact. Moist buccal mucosa. Head is atraumatic, normocephalic. Hears conversational speech. No nasal drainage. NECK: Supple without lymphadenopathy. CHEST: Non-labored respirations and equal bilateral excursions. CARDIOVASCULAR: Regular rate with regular rhythm. Palpable 2+ radial pulses. ABDOMEN: Soft. Nondistended. Tenderness upon palpation. Positive bowel sounds. MUSCULOSKELETAL: No clubbing, cyanosis or edema. NEUROLOGIC: No focal or lateralizing signs. Cranial nerves II through XII grossly intact. PSYCH: Appropriate affect. Alert and oriented to person, place and time. SKIN: Well perfused. Good skin turgor. LABORATORY DATA: -Laboratory data upon admission reveals white count 17.1. Hemoglobin 15.6. Potassium 4.4. BUN 20. Creatinine 0.67. Lactic acid 3.4. bilirubin 0.9. AST 29. ALT 34. Amylase 471. Lipase 3721. -repeat lactic acid improved 1.4 with IV hydration -repeat lab work this morning reveals amylase 250. Lipase 599. IMAGIN. CT abdomen and pelvis: No calcified gallstones. No hepatic lesions. The biliary tree is of normal caliber. Evidence of hepatomegaly. There is inflammatory changes involving peripancreatic region. Small amount of ascites. Prominent small bowel loops in the abdomen which may be related to ileus secondary to severe inflammatory changes in the peripancreatic region. Diverticulosis of the colon. ASSESSMENT: 1. Acute pancreatitis, likely secondary to EtOH abuse 2. Abdominal pain 3. Leukocytosis 4. Alcohol abuse, patient reports drinking at least 6 beers daily 5. Dilated small bowel loops, possible ileus secondary to pancreatitis 6. Diverticulosis 7. Hepatomegaly PLAN: 1. Increase IV fluids at 125cc/hr 2. NPO except for ice chips until abdominal pain improves 3. Daily amylase and lipase 4. Recommend abstinence from alcohol 5. Conservative management of ileus. Likely will resolve with improvement of pancreatitis Nurse practitioner note has been reviewed by physician. Signing provider agrees with the documented findings, assessment, and plan of care. Past Medical History Past Medical History: GERD/Reflux, Hyperlipidemia, Hypertension, Osteoarthritis (OA) History of Any Multi-Drug Resistant Organisms: None Reported Past Surgical History: Orthopedic Surgery Additional Past Surgical History / Comment(s): REPAIR TORN MENICUS RT KNEE, HERNIA REPAIR LT GROIN, dec 10 rt hip re-do Past Anesthesia/Blood Transfusion Reactions: No Reported Reaction Past Psychological History: No Psychological Hx Reported Smoking Status: Current every day smoker Past Alcohol Use History: Daily Additional Past Alcohol Use History / Comment(s): STARTED SMOKING AGE 18 Past Drug Use History: None Reported - Past Family History Father Family Medical History: Cancer, Hypertension Mother Family Medical History: Hypertension, Osteoarthritis (OA) Medications and Allergies Home Medications Medication Instructions Recorded Confirmed Type Cyclobenzaprine [Flexeril] 5 mg PO TID PRN 05/24/19 05/24/19 History Gabapentin [Neurontin] 300 mg PO DAILY 05/24/19 05/24/19 History HYDROcodone/APAP 10-325MG [[place] 1 tab PO QID PRN 05/24/19 05/24/19 History 10-325] Ibuprofen [Motrin] 800 mg PO BID 05/24/19 05/24/19 History amLODIPine [Norvasc] 10 mg PO DAILY 05/24/19 05/24/19 History Allergies Allergy/AdvReac Type Severity Reaction Status Date / Time No Known Allergies Allergy Verified 05/24/19 07:48 Surgical - Exam Vital Signs Temp Pulse Resp BP Pulse Ox 97.5 F L 97 18 147/94 99 05/24/19 07:02 05/24/19 07:02 05/24/19 07:02 05/24/19 07:02 05/24/19 07:02 Results - Labs 05/24/19 07:20 05/25/19 07:16 Abnormal Lab Results - Last 24 Hours (Table) 05/24/19 05/25/19 Range/Units 18:00 07:16 Creatinine 0.51 L (0.66-1.25) mg/dL Amylase 250 H (30-110) U/L Lipase 599 H (23-300) U/L Ur Specific [place] 1.042 H (1.001-1.035) Urine Protein 1+ H (Negative) Urine Mucus Occasional H (None) /hpf Microbiology - Last 24 Hours (Table) 05/24/19 08:03 Blood Culture - Preliminary Blood No Growth after 24 hours Diabetes panel 05/25/19 Range/Units 07:16 Sodium 139 (137-145) mmol/L Potassium 4.7 (3.5-5.1) mmol/L Chloride 106 (98-107) mmol/L Carbon Dioxide 25 (22-30) mmol/L BUN 20 (9-20) mg/dL Creatinine 0.51 L (0.66-1.25) mg/dL Glucose 99 (74-99) mg/dL Calcium 8.4 (8.4-10.2) mg/dL AST 28 (17-59) U/L ALT 24 (21-72) U/L Alkaline Phosphatase 107 (38-126) U/L Total Protein 6.5 (6.3-8.2) g/dL Albumin 3.9 (3.5-5.0) g/dL Calcium panel 05/25/19 Range/Units 07:16 Calcium 8.4 (8.4-10.2) mg/dL Albumin 3.9 (3.5-5.0) g/dL Pituitary panel 05/25/19 Range/Units 07:16 Sodium 139 (137-145) mmol/L Potassium 4.7 (3.5-5.1) mmol/L Chloride 106 (98-107) mmol/L Carbon Dioxide 25 (22-30) mmol/L BUN 20 (9-20) mg/dL Creatinine 0.51 L (0.66-1.25) mg/dL Glucose 99 (74-99) mg/dL Calcium 8.4 (8.4-10.2) mg/dL Adrenal panel 05/25/19 Range/Units 07:16 Sodium 139 (137-145) mmol/L Potassium 4.7 (3.5-5.1) mmol/L Chloride 106 (98-107) mmol/L Carbon Dioxide 25 (22-30) mmol/L BUN 20 (9-20) mg/dL Creatinine 0.51 L (0.66-1.25) mg/dL Glucose 99 (74-99) mg/dL Calcium 8.4 (8.4-10.2) mg/dL Total Bilirubin 1.0 (0.2-1.3) mg/dL AST 28 (17-59) U/L ALT 24 (21-72) U/L Alkaline Phosphatase 107 (38-126) U/L Total Protein 6.5 (6.3-8.2) g/dL Albumin 3.9 (3.5-5.0) g/dL Assessment and Plan (1) ETOH abuse Current Visit: Yes Status: Acute Code(s): F10.10 - ALCOHOL ABUSE, UNCOMP LICATED SNOMED Code(s): 92301560 (2) Diverticulosis Current Visit: Yes Status: Acute Code(s): K57.90 - DVRTCLOS OF INTEST, PART UNSP, W/O PERF OR ABSCESS W/O BLEED SNOMED Code(s): 683222050 (3) Hepatomegaly Current Visit: Yes Status: Acute Code(s): R16.0 - HEPATOMEGALY, NOT ELSEWHERE CLASSIFIED SNOMED Code(s): 74209179 (4) Acute pancreatitis Current Visit: Yes Status: Acute Code(s): K85.90 - ACUTE PANCREATITIS WITHOUT NECROSIS OR INFECTION, UNSP SNOMED Code(s): 200392173 (5) Ileus Current Visit: Yes Status: Acute Code(s): K56.7 - ILEUS, UNSPECIFIED SNOMED Code(s): 090559256 (6) Lactic acidosis Current Visit: Yes Status: Acute Code(s): E87.2 - ACIDOSIS SNOMED Code(s): 33681553 (7) Leukocytosis Current Visit: Yes Status: Acute Code(s): D72.829 - ELEVATED WHITE BLOOD CELL COUNT, UNSPECIFIED SNOMED Code(s): 852326709 <Lizzy Silverio N - Last Filed: 05/25/19 18:49> History of Present Illness History of present illness: As above. He has moderate pancreatitis with chronic pain. Recommend toradol for pain control as narcotics adds increased risk for ileus. Ice chips agreeable. Surgical - Exam Vital Signs Temp Pulse Resp BP Pulse Ox 97.5 F L 97 18 147/94 99 05/24/19 07:02 05/24/19 07:02 05/24/19 07:02 05/24/19 07:02 05/24/19 07:02 Results - Labs 05/24/19 07:20 05/25/19 07:16 Abnormal Lab Results - Last 24 Hours (Table) 05/25/19 Range/Units 07:16 Creatinine 0.51 L (0.66-1.25) mg/dL Amylase 250 H (30-110) U/L Lipase 599 H (23-300) U/L Microbiology - Last 24 Hours (Table) 05/24/19 08:03 Blood Culture - Preliminary Blood No Growth after 24 hours Diabetes panel 05/25/19 Range/Units 07:16 Sodium 139 (137-145) mmol/L Potassium 4.7 (3.5-5.1) mmol/L Chloride 106 (98-107) mmol/L Carbon Dioxide 25 (22-30) mmol/L BUN 20 (9-20) mg/dL Creatinine 0.51 L (0.66-1.25) mg/dL Glucose 99 (74-99) mg/dL Calcium 8.4 (8.4-10.2) mg/dL AST 28 (17-59) U/L ALT 24 (21-72) U/L Alkaline Phosphatase 107 (38-126) U/L Total Protein 6.5 (6.3-8.2) g/dL Albumin 3.9 (3.5-5.0) g/dL Calcium panel 05/25/19 Range/Units 07:16 Calcium 8.4 (8.4-10.2) mg/dL Albumin 3.9 (3.5-5.0) g/dL Pituitary panel 05/25/19 Range/Units 07:16 Sodium 139 (137-145) mmol/L Potassium 4.7 (3.5-5.1) mmol/L Chloride 106 (98-107) mmol/L Carbon Dioxide 25 (22-30) mmol/L BUN 20 (9-20) mg/dL Creatinine 0.51 L (0.66-1.25) mg/dL Glucose 99 (74-99) mg/dL Calcium 8.4 (8.4-10.2) mg/dL Adrenal panel 05/25/19 Range/Units 07:16 Sodium 139 (137-145) mmol/L Potassium 4.7 (3.5-5.1) mmol/L Chloride 106 (98-107) mmol/L Carbon Dioxide 25 (22-30) mmol/L BUN 20 (9-20) mg/dL Creatinine 0.51 L (0.66-1.25) mg/dL Glucose 99 (74-99) mg/dL Calcium 8.4 (8.4-10.2) mg/dL Total Bilirubin 1.0 (0.2-1.3) mg/dL AST 28 (17-59) U/L ALT 24 (21-72) U/L Alkaline Phosphatase 107 (38-126) U/L Total Protein 6.5 (6.3-8.2) g/dL Albumin 3.9 (3.5-5.0) g/dL
--- NOTE | 2019-05-25 14:00 | XR ---
EXAMINATION TYPE: XR chest 2V DATE OF EXAM: 05/25/2019 COMPARISON: NONE TECHNIQUE: PA and lateral views submitted. HISTORY: Shortness of breath FINDINGS: Right perihilar and bilateral lower lobe infiltrate are seen. Azygos fissure noted. No pneumothorax. Tiny bilateral effusions. Mild hyperinflation. Hypertrophic change of the spine. IMPRESSION: 1. Bilateral infiltrate and small effusion. Correlate for atelectasis or pneumonia. Mild central veno us congestion not excluded.
[2019-05-25] MEDS: ATORVASTATIN 40 MG TAB PO SCH (19:48)
[2019-05-26] MEDS: HYDROmorphone 2 MG/ML 1 ML SYRINGE IVP PRN ×7 (01:12→21:43)
[2019-05-26] MEDS: LORazepam 2 MG/ML INJ IV PRN ×4 (02:50→20:51)
[2019-05-26] MEDS: SODIUM CHLORIDE 0.9% 1,000 ML IV SCH ×3 (05:34→20:51)
[2019-05-26] MEDS: amLODIPine 10 MG TAB PO SCH (07:22)
[2019-05-26] MEDS: DICYCLOMINE 10 MG CAP PO SCH ×3 (07:22→20:51)
[2019-05-26] MEDS: GABAPENTIN 300 MG CAP PO SCH (07:22)
[2019-05-26] MEDS: PANTOPRAZOLE 40 MG/10 ML VIAL IV SCH (07:28)
[2019-05-26 09:32] LABS: Basophils % (A) 0 %; Eosinophils # (A) 0.1 k/uL (0-0.7); Eosinophils % (A) 1 %; HCT 38.4 % (39.0-53.0); HGB 12.7 gm/dL (13.0-17.5); Lymphocytes # (A) 0.8 k/uL (1.0-4.8); Lymphocytes % (A) 9 %; MCH 29.4 pg (25.0-35.0); MCHC 33.1 g/dL (31.0-37.0); MCV 88.8 fL (80.0-100.0); Mean Platelet Volume 7.9; Monocytes # (A) 0.6 k/uL (0-1.0); Monocytes % (A) 7 %; Neutrophils # (A) 6.8 k/uL (1.3-7.7); Neutrophils % (A) 79 %; Platelet Count 220 k/uL (150-450); RBC 4.33 m/uL (4.30-5.90); RDW 15.8 % (11.5-15.5); WBC 8.7 k/uL (3.8-10.6)
[2019-05-26 09:51] LABS: Amylase 46 U/L (30-110); Lipase 101 U/L (23-300)
--- NOTE | 2019-05-26 11:24 | P.PN ---
Subjective Progress Note Date: 05/26/19 Principal diagnosis: Pancreatitis Patient was seen and examined. No acute events overnight. NG tube inserted yesterday by surgery to suction. Green bile draining today. Patient continues to complain of generalized abdominal cramping, 10 out of 10 in severity. States the Dilaudid only lasts for 1 hour. He denies fever or chills. He denies chest pain, shortness of breath or palpitations. Objective - Vital Signs Vital signs: Vital Signs Temp 97.7 F 05/26/19 07:05 Pulse 87 05/26/19 07:05 Resp 15 05/26/19 07:05 BP 99/61 05/26/19 07:05 Pulse Ox 97 05/26/19 07:05 Intake & Output 05/25/19 05/26/19 05/26/19 18:59 06:59 18:59 Output Total 525 700 Balance -525 -700 Output: Gastric Drainage 700 Urine 525 Other: # Voids 2 3 - Exam General: [non toxic], [severe distress], [appears at stated age] Derm: [warm], [dry] Head: [atraumatic], [normocephalic], [NG tube inserted to low suction] Eyes: [EOMI], [no lid lag], [anicteric sclera] Mouth: [no lip lesion], [mucus membranes moist] Cardiovascular: [S1S2 reg], [no murmurs], [positive DP pulse bilateral], Lungs: [CTA bilateral], [no rhonchi, no rales] , [no accessory muscle use] Abdominal: [soft], [tenderness to palpation of the in all 4 quadrants without rebound], [no guarding], [no appreciable organomegaly] Ext: [no gross muscle atrophy], [no edema], [no contractures] Neuro: [no focal neuro deficits] Psych: [Alert], [oriented], [appropriate affect] - Labs CBC & Chem 7: 05/26/19 08:45 05/25/19 07:16 Labs: Abnormal Lab Results - Last 24 Hours (Table) 05/26/19 Range/Units 08:45 Hgb 12.7 L (13.0-17.5) gm/dL Hct 38.4 L (39.0-53.0) % RDW 15.8 H (11.5-15.5) % Lymphocytes # 0.8 L (1.0-4.8) k/uL Microbiology - Last 24 Hours (Table) 05/24/19 08:03 Blood Culture - Preliminary Blood No Growth after 24 hours Assessment and Plan Assessment: Assessment and Plan Acute pancreatitis with ileus Alcohol abuse Leukocytosis Hypertension Hyperlipidemia Unknown cause. Amylase [id number] normal limits, lipase [id number] normal limits. Total bilirubin and LFTs within normal limits. CT abdomen and pelvis confirmed suspicion for pancreatitis. Plans: Dilaudid 2 mg IV every 3 hours as needed for severe pain. Continue IV hydration with normal saline at 125 mL per hour. Patient to be nothing by mouth pending improvement. Zofran as needed for nausea or vomiting. Continue NG tube to suction as per general surgery. Continue Protonix 40 mg IV daily. Repeat computed tomography scan ordered due to uncontrolled pain, confirms pancreatitis with possible ileus. Add Bentyl per abdominal cramping. Follow surgery consultation for ileus. States he drinks a pint of vodka and 6 pack of beer daily. Plans: Ativan 1 mg every 4 hours as needed for agitation. CIWA protocol. Leukocytosis of 17.1 with neutrophilia, afebrile, now within normal limits. No signs of infection. Blood culture negative at 24 hours. Likely reactive. Plans: Daily CBC. Follow blood cultures. BP 99/61. Plans: Continue amlodipine. Monitor vitals, adjust medications as necessary. Plans: Continue Lipitor. Resolved: Lactic acidosis. Patient admitted for pancreatitis, he is pending clinical improvement, likely DC in 2-3 days.
[2019-05-26] MEDS: KETOROLAC 30 MG/ML 1 ML VIAL IVP SCH ×3 (11:39→23:57)
--- NOTE | 2019-05-26 12:48 | P.PN ---
<Laura Gilliam Garima - Last Filed: 05/26/19 12:39> Subjective Progress Note Date: 05/26/19 CHIEF COMPLAINT: abdominal pain HISTORY OF PRESENT ILLNESS: Patient examined at the bedside with Dr. Silverio. He continues to report severe abdominal pain. Denies episodes of emesis. NG tube was ordered last night per medicine team, not surgery team. WBC 8.7. Hemoglobin 12.7. Amylase 46. Lipase 101. PHYSICAL EXAM: VITAL SIGNS: Currently stable. GENERAL: Well-developed in no acute distress however appears uncomfortable. HEENT: NG to LIS with bilous drainage. No sclera icterus. Extraocular movements grossly intact. Moist buccal mucosa. Head is atraumatic, normocephalic. Hears conversational speech. No nasal drainage. NECK: Supple without lymphadenopathy. CHEST: Non-labored respirations and equal bilateral excursions. CARDIOVASCULAR: Regular rate with regular rhythm. Palpable 2+ radial pulses. ABDOMEN: Soft. Nondistended. Tenderness upon palpation. Positive bowel sounds. MUSCULOSKELETAL: No clubbing, cyanosis or edema. NEUROLOGIC: No focal or lateralizing signs. Cranial nerves II through XII grossly intact. PSYCH: Appropriate affect. Alert and oriented to person, place and time. SKIN: Well perfused. Good skin turgor. ASSESSMENT: 1. Acute pancreatitis, likely secondary to EtOH abuse 2. Abdominal pain 3. Leukocytosis 4. Alcohol abuse, patient reports drinking at least 6 beers daily and vodka 5. Dilated small bowel loops, possible ileus secondary to pancreatitis 6. Diverticulosis 7. Hepatomegaly 8. Chronic opioid use PLAN: 1. Continue IV fluids 2. NPO until abdominal pain improves 3. Pain control. Continue dilaudid. Will add scheduled Toradol to regimen. 4. Recommend abstinence from alcohol 5. NG tube was ordered yesterday per medicine due to abdominal pain. Patient without emesis yesterday prior to inserting. Patient does not require NG tube and NG may be discontinued. Nurse practitioner note has been reviewed by physician. Signing provider agrees with the documented findings, assessment, and plan of care. Objective - Vital Signs Vital signs: Vital Signs Temp 97.7 F 05/26/19 07:05 Pulse 87 05/26/19 07:05 Resp 15 05/26/19 07:05 BP 99/61 05/26/19 07:05 Pulse Ox 97 05/26/19 07:05 Intake & Output 05/25/19 05/26/19 05/26/19 18:59 06:59 18:59 Output Total 525 700 Balance -525 -700 Output: Gastric Drainage 700 Urine 525 Other: # Voids 2 3 - Labs CBC & Chem 7: 05/26/19 08:45 05/25/19 07:16 Labs: Abnormal Lab Results - Last 24 Hours (Table) 05/26/19 Range/Units 08:45 Hgb 12.7 L (13.0-17.5) gm/dL Hct 38.4 L (39.0-53.0) % RDW 15.8 H (11.5-15.5) % Lymphocytes # 0.8 L (1.0-4.8) k/uL Microbiology - Last 24 Hours (Table) 05/24/19 08:03 Blood Culture - Preliminary Blood No Growth after 48 hours Assessment and Plan (1) ETOH abuse Current Visit: Yes Status: Acute Code(s): F10.10 - ALCOHOL ABUSE, UNCOMPLICATED SNOMED Code(s): 66819379 (2) Diverticulosis Current Visit: Yes Status: Acute Code(s): K57.90 - DVRTCLOS OF INTEST, PART UNSP, W/O PERF OR ABSCESS W/O BLEED SNOMED Code(s): 284348449 (3) Hepatomegaly Current Visit: Yes Status: Acute Code(s): R16.0 - HEPATOMEGALY, NOT ELSEWHERE CLASSIFIED SNOMED Code(s): 75824044 (4) Acute pancreatitis Current Visit: Yes Status: Acute Code(s): K85.90 - ACUTE PANCREATITIS WITHOUT NECROSIS OR INFECTION, UNSP SNOMED Code(s): 168536592 (5) Ileus Current Visit: Yes Status: Acute Code(s): K56.7 - ILEUS, UNSPECIFIED SNOMED Code(s): 919581821 (6) Lactic acidosis Current Visit: Yes Status: Acute Code(s): E87.2 - ACIDOSIS SNOMED Code(s): 75481462 (7) Leukocytosis Current Visit: Yes Status: Acute Code(s): D72.829 - ELEVATED WHITE BLOOD CELL COUNT, UNSPECIFIED SNOMED Code(s): 698434662 <Lizzy Silverio N - Last Filed: 05/26/19 16:42> Subjective At this time conservative management for moderate to severe pancreatitis. We'll follow lipase levels. We will add ketorolac for pain Objective - Vital Signs Vital signs: Vital Signs Temp 98.8 F 05/26/19 14:23 Pulse 80 05/26/19 14:23 Resp 15 05/26/19 14:23 BP 102/59 05/26/19 14:23 Pulse Ox 97 05/26/19 14:23 Intake & Output 05/25/19 05/26/19 05/26/19 18:59 06:59 18:59 Output Total 525 700 Balance -525 -700 Output: Gastric Drainage 700 Urine 525 Other: # Voids 2 3 1 - Labs CBC & Chem 7: 05/26/19 08:45 05/25/19 07:16 Labs: Abnormal Lab Results - Last 24 Hours (Table) 05/26/19 Range/Units 08:45 Hgb 12.7 L (13.0-17.5) gm/dL Hct 38.4 L (39.0-53.0) % RDW 15.8 H (11.5-15.5) % Lymphocytes # 0.8 L (1.0-4.8) k/uL Microbiology - Last 24 Hours (Table) 05/24/19 08:03 Blood Culture - Preliminary Blood No Growth after 48 hours
[2019-05-26] MEDS: ATORVASTATIN 40 MG TAB PO SCH (20:51)
[2019-05-27] MEDS: HYDROmorphone 2 MG/ML 1 ML SYRINGE IVP PRN ×2 (00:19→05:16)
[2019-05-27] MEDS: LORazepam 2 MG/ML INJ IV PRN (03:37)
[2019-05-27] MEDS: KETOROLAC 30 MG/ML 1 ML VIAL IVP SCH (06:01)
[2019-05-27] MEDS: SODIUM CHLORIDE 0.9% 1,000 ML IV SCH (06:02)
[2019-05-27 07:56] VITALS: BP 115/71; PULSE 81; RESP 17; TEMP 98.3
[2019-05-27] MEDS: amLODIPine 10 MG TAB PO SCH (08:05)
[2019-05-27] MEDS: PANTOPRAZOLE 40 MG/10 ML VIAL IV SCH (08:05)
[2019-05-27] MEDS: DICYCLOMINE 10 MG CAP PO SCH (08:05)
[2019-05-27] MEDS: GABAPENTIN 300 MG CAP PO SCH (08:05)
[2019-05-27 08:54] LABS: Amylase 49 U/L (30-110); Lipase 126 U/L (23-300)
--- NOTE | 2019-05-27 09:23 | P.DS ---
Providers Date of admission: 05/24/19 09:10 Expected date of discharge: 05/27/19 Attending physician: Braxton Harrington MD Consults: 05/25/19 08:40 Consult Physician Urgent Consulting Provider: Lizzy Silverio Consult Reason/Comments: abd pn n/v Do you want consulting provider notified?: Yes Primary care physician: [facility] Course: 59-year-old with PMH of hypertension, hyperlipidemia, severe bilateral hip osteoarthritis since the ED for abdominal pain. Patient reports waking up with the pain which started yesterday morning. Pain is periumbilical, constant, 10 out of 10 in severity. Patient describes the pain as squeezing in nature. Pain occasionally radiates to the right back. There are no alleviating or aggravating factors. Patient reports no previous e pisodes. Patient reports drinking a sixpack daily but denies any withdrawal symptoms. Patient reports associated nausea and vomiting with the abdominal pain. He smokes one pack of cigarettes daily since he was 17 years old. He denies any history of gallstones. Patient denies any headache, lower extremity edema, fever or chills, cough, chest pain, shortness of breath, palpitations, changes in urination or bowel habits. No changes in appetite or weight. In the ED, CBC showed a leukocytosis of 17.1. Coagulation panel was negative. CMP was negative. Lactic acid was 3.4. Amylase was [address] lipase was 3721. CT of the abdomen and pelvis confirmed suspicions acute pancreatitis. Patient is admitted for pancreatitis, IV hydration and pain control, pending clinical improvement. Patient was initially admitted for acute pancreatitis with ileus. Amylase was initially 471 which trended to within normal limits on discharge. Lipase was 3722 which trended to within normal limits on discharge. Total bilirubin and LFTs were within normal limits. Repeat CT abdomen and pelvis was performed for worsening abdominal pain which confirmed acute pancreatitis and ileus. Patient was given Dilaudid 2 mg IV every 3 hours as needed for severe pain. He was hydrated with normal saline and given Zofran as needed for nausea and vomiting. Gen. surgery was consulted for ileus and recommended strict nothing by mouth. NG tube was inserted which was discontinued at the time of discharge. Patient was treated with Protonix IV daily. Bentyl was added for abdominal cramping. Patient was placed on CIWA protocol and given Ativan as needed for agitation for history of alcohol consumption. Patient initially had a leukocytosis of 17.1 with neutrophilia on admission but was afebrile throughout his hospitalization. His WBC count was within normal limits on discharge. Blood cultures are negative at 48 hours. Patient was seen and examined prior to discharge. No acute events overnight. Patient reports resolution of his abdominal pain. Wanted to leave. He denies any chest pain, shortness breath or palpitations. No nausea or vomiting. No fever or chills. General: [non toxic], [no distress], [appears at stated age] Derm: [warm], [dry] Head: [atraumatic], [normocephalic] Eyes: [EOMI], [no lid lag], [anicteric sclera] Mouth: [no lip lesion], [mucus membranes moist] Cardiovascular: [S1S2 reg], [no murmurs], [positive DP pulse bilateral], Lungs: [CTA bilateral], [no rhonchi, no rales] , [no accessory muscle use] Abdominal: [soft], [nontender to palpation], [no guarding], [no appreciable organomegaly] Ext: [no gross muscle atrophy], [no edema], [no contractures] Neuro: [no focal neuro deficits] Psych: [Alert], [oriented], [appropriate affect] Assessment and Plan Acute pancreatitis with ileus Alcohol abuse Leukocytosis Hypertension Hyperlipidemia Unknown cause. Amylase [id number] normal limits, lipase [id number] normal limits. Total bilirubin and LFTs within normal limits. CT abdomen and pelvis confirmed suspicion for pancreatitis. Plans: Dilaudid 2 mg IV every 3 hours as needed for severe pain. Continue IV hydration with normal saline at 125 mL per hour. Patient to be nothing by mouth pending improvement. Zofran as needed for nausea or vomiting. NG tube discontinued. Continue Protonix 40 mg IV daily. Repeat computed tomography scan ordered due to uncontrolled pain, confirms pancreatitis with possible ileus. Add Bentyl per abdominal cramping. Follow surgery consultation for ileus. States he drinks a pint of vodka and 6 pack of beer daily. Plans: Ativan 1 mg every 4 hours as needed for agitation. [facility] protocol. Leukocytosis of 17.1 with neutrophilia, afebrile, now within normal limits. No signs of infection. Blood culture negative at 48 hours. Likely reactive. Plans: Daily CBC. Follow blood cultures. BP 115/71. Plans: Continue amlodipine. Monitor vitals, adjust medications as necessary. Plans: Continue Lipitor. Resolved: Lactic acidosis. Patient admitted for pancreatitis, much improved. Patient requesting to leave, threatening AMA. DC today. Pertinent Studies: CT abdomen and pelvis, chest x-ray Procedures: NG tube placement Patient Condition at Discharge: Stable Plan - Discharge Summary Discharge Rx Participant: No New Discharge Prescriptions: New Atorvastatin [Lipitor] 40 mg PO HS #30 tab Pantoprazole Sodium [Protonix] 40 mg PO DAILY #30 tablet. Continue amLODIPine [Norvasc] 10 mg PO DAILY HYDROcodone/APAP 10-325MG [[place] 10-325] 1 tab PO QID PRN PRN Reason: Pain Gabapentin [Neurontin] 300 mg PO DAILY Cyclobenzaprine [Flexeril] 5 mg PO TID PRN PRN Reason: Muscle Spasm Discontinued Ibuprofen [Motrin] 800 mg PO BID Discharge Medication List Cyclobenzaprine [Flexeril] 5 mg PO TID PRN 05/24/19 [History] Gabapentin [Neurontin] 300 mg PO DAILY 05/24/19 [History] HYDROcodone/APAP 10-325MG [[place] 10-325] 1 tab PO QID PRN 05/24/19 [History] amLODIPine [Norvasc] 10 mg PO DAILY 05/24/19 [History] Atorvastatin [Lipitor] 40 mg PO HS #30 tab 05/27/19 [Rx] Pantoprazole Sodium [Protonix] 40 mg PO DAILY #30 tablet. 05/27/19 [Rx] Follow up Appointment(s)/Referral(s): Preston Self MD [Primary Care Provider] - 1-2 days Petar León MD [STAFF PHYSICIAN] - 1 Week Activity/Diet/Wound Care/Special Instructions: Diet: Low fat Follow-up PCP within 1-2 days of discharge. Follow-up gastroenterology within 1 week of discharge. Please refrain from drinking alcohol. Discharge Disposition: HOME SELF-CARE
[2019-05-27 09:32] LABS: Basophils % (A) 0 %; Eosinophils # (A) 0.2 k/uL (0-0.7); Eosinophils % (A) 2 %; HCT 36.2 % (39.0-53.0); HGB 12.1 gm/dL (13.0-17.5); Lymphocytes # (A) 0.9 k/uL (1.0-4.8); Lymphocytes % (A) 11 %; MCH 29.1 pg (25.0-35.0); MCHC 33.3 g/dL (31.0-37.0); MCV 87.2 fL (80.0-100.0); Mean Platelet Volume 9.4; Monocytes # (A) 0.6 k/uL (0-1.0); Monocytes % (A) 8 %; Neutrophils # (A) 6.2 k/uL (1.3-7.7); Neutrophils % (A) 76 %; Platelet Count 230 k/uL (150-450); RBC 4.15 m/uL (4.30-5.90); RDW 15.5 % (11.5-15.5); WBC 8.1 k/uL (3.8-10.6)
== END 2019-05-27 09:37 | disposition home or self-care (01) | DRG 439 ==
LOC: EC 06:55 → 4MS4W 09:10 → 4SSUR 05-25 17:48
PROVIDERS: ADMIT Family Medicine; ATTEND Family Medicine
DX: K85.20 Alcohol induced acute pancreatitis without necrosis or infection (principal); E87.2 Acidosis; K56.7 Ileus, unspecified; R16.0 Hepatomegaly, not elsewhere classified; E78.5 Hyperlipidemia, unspecified; E86.0 Dehydration; F10.10 Alcohol abuse, uncomplicated; D72.829 Elevated white blood cell count, unspecified; F17.210 Nicotine dependence, cigarettes, uncomplicated; G89.29 Other chronic pain; I10 Essential (primary) hypertension; K21.9 Gastro-esophageal reflux disease without esophagitis; K57.90 Diverticulosis of intestine, part unspecified, without perforation or abscess without bleeding; M16.11 Unilateral primary osteoarthritis, right hip; Z79.01 Long term (current) use of anticoagulants; Z79.891 Long term (current) use of opiate analgesic; Z79.899 Other long term (current) drug therapy; Z96.642 Presence of left artificial hip joint; Z82.49 Family history of ischemic heart disease and other diseases of the circulatory system; Z80.9 Family history of malignant neoplasm, unspecified; Z82.61 Family history of arthritis
CPT/HCPCS: 36415; 71046; 74177; 80053; 81001; 82150; 83605; 83690; 85025; 85610; 85730; 87040; 93005; 96361; 96374; 96375; 96376; 99285

== ENCOUNTER → 2019-10-18 | Outpatient (CLI) | payer OTHER ==
--- NOTE | 2019-10-19 02:00 | MR ---
EXAMINATION TYPE: MR abdomen wo/w con DATE OF EXAM: 10/18/2019 COMPARISON: None HISTORY: Abdominal pain, pancreatitis CONTRAST: Standard multiplanar, multisequence MRI departmental protocol utilizing 8.5 mL intravenous Gadavist g adolinium contrast. FINDINGS: Liver shows no focal defect. Gallbladder appears normal. Spleen is intact. Stomach appears normal. Pancreatic duct appears fairly normal. I see no evidence of a pancreatic mass. I see no evidence of p ancreatic pseudocyst. The common bile duct measures 9 mm. Intrahepatic bile ducts are not dilated. Pa ncreatic duct measures 2 mm. There is no adrenal mass. Kidneys have normal size and contour. There is no hydronephrosis. There is no sign of retroperitoneal adenopathy. There is no ascites. There is no evidence of pleural effusion. There is no sign of pericardial effusion. Contrast images show no pathologic enhancement. There is n ormal contrast opacification of the portal venous system. IMPRESSION: There is mild ectasia of the common bile duct but no dilation of the intrahepatic bile ducts. This co uld relate to some gallbladder dysfunction. No evidence of cholecystitis. No sign of gallstones. No e vidence of pancreatitis. No evidence of pseudocyst.
== END | disposition home or self-care (01) ==
LOC: RADMRIMAIN 19:42
PROVIDERS: ATTEND Internal Medicine
DX: K83.8 Other specified diseases of biliary tract (principal)
CPT/HCPCS: 74183; A9585

== ENCOUNTER → 2019-10-30 | Outpatient (CLI) | payer OTHER ==
[2019-10-30 15:15] LABS: Basophils # (A) 0.1 k/uL (0-0.2); Basophils % (A) 1 %; Eosinophils # (A) 0.3 k/uL (0-0.7); Eosinophils % (A) 3 %; HCT 47.1 % (39.0-53.0); HGB 15.7 gm/dL (13.0-17.5); Lymphocytes # (A) 2.3 k/uL (1.0-4.8); Lymphocytes % (A) 24 %; MCH 29.5 pg (25.0-35.0); MCHC 33.4 g/dL (31.0-37.0); MCV 88.4 fL (80.0-100.0); Mean Platelet Volume 8.1; Monocytes # (A) 0.5 k/uL (0-1.0); Monocytes % (A) 5 %; Neutrophils # (A) 6.3 k/uL (1.3-7.7); Neutrophils % (A) 65 %; Platelet Count 322 k/uL (150-450); RBC 5.33 m/uL (4.30-5.90); RDW 13.7 % (11.5-15.5); WBC 9.6 k/uL (3.8-10.6)
[2019-10-30 19:17] LABS: African American GFR (CKD) 121.4 (60.0-200.0); Albumin 4.8 g/dL (3.80-4.90); Albumin/Globulin Ratio 2.29 (1.60-3.17); Anion Gap 4.3 mmol/L (4.00-12.00); BUN/Creat Ratio 21.43 Ratio (12.00-20.00); Calcium 9.7 mg/dL (8.7-10.3); Carbon Dioxide 25.7 mmol/L (21.6-31.8); Globulin 2.1 g/dL (1.6-3.3); Non-African American GFR(CKD) 104.8 (60.0-200.0); Potassium 4.1 mmol/L (3.5-5.5); Total Bilirubin 0.4 mg/dL (0.2-1.2); Total Protein 6.9 g/dL (6.2-8.2)
[2019-10-31 12:52] LABS: IgG Subclass 3 40.3 mg/dL (11.0-85.0); IgG Subclass 4 15.1 mg/dL (3.0-175.0)
== END | disposition home or self-care (01) ==
LOC: LABWHC1 14:16
PROVIDERS: ATTEND Internal Medicine
DX: K85.20 Alcohol induced acute pancreatitis without necrosis or infection (principal)
CPT/HCPCS: 36415; 80053; 82787; 85025; 86038